=== PATIENT | female | born 1965 | race African-American/Black ===

== ENCOUNTER 2017-02-08 08:13 | Emergency (ER) | payer MEDICAID ==
[~2017-02-08] VITALS: Ht 162.6 cm; Wt 114.0 kg
[2017-02-08] MEDS ORDERED: CLONIDINE 0.1MG TABLET PO ONE (11:00)
[2017-02-08 11:37] VITALS: BP 215/92
== END 2017-02-08 12:06 | disposition home or self-care (01) ==
LOC: ER 08:45
DX: T16.1XXA Foreign body in right ear, initial encounter (principal); I10 Essential (primary) hypertension; X58.XXXA Exposure to other specified factors, initial encounter; Y93.89 Activity, other specified; Y92.89 Other specified places as the place of occurrence of the external cause; Y99.8 Other external cause status
CPT/HCPCS: 69200; 99284

== ENCOUNTER 2017-03-11 09:50 | Emergency (ER) | payer MEDICAID ==
[~2017-03-11] VITALS: Ht 162.6 cm; Wt 115.0 kg
[2017-03-11] MEDS ORDERED: HYDROCHLOROTHIAZIDE 25MG TABLET PO ONE (10:45)
[2017-03-11] MEDS ORDERED: ASPIRIN 81MG TABLET PO ONE (10:45)
[2017-03-11] MEDS ORDERED: NITROGLYCERIN 0.4MG TABLET SL SL ONE (10:45)
[2017-03-11 11:29] LABS: BASOPHILS % 0.5 % (0.0-2.0); EOSINOPHILS % 2.6 % (0.0-5.0); HEMATOCRIT. 35.5 % (36.0-48.0); HEMOGLOBIN. 11.2 g/dL (12.0-16.0); LYMPHOCYTES % 25.7 % (20.0-50.0); MEAN CORPUSCULAR VOLUME 72.5 fL (81.0-99.0); MEAN PLATELET VOLUME 8.7 fl (7.4-10.4); MONOCYTES % 6.5 % (2.0-8.0); NEUTROPHILS % 64.7 % (40.0-76.0); PLATELET 235 x1000/uL (130-400); RED CELL DISTRIBUTION WIDTH 15.5 % (11.6-14.6)
[2017-03-11 11:37] LABS: PARTIAL THROMBOPLASTIN TIME 27.6 sec (24.0-34.0); PROTHROMBIN TIME 10.4 sec
[2017-03-11 11:46] LABS: CARBON DIOXIDE 29 mEq/L (21-32); CHLORIDE 106 mEq/L (98-107); TROPONIN I 0.04 ng/mL (0.00-0.04)
[2017-03-11 15:38] VITALS: BP 176/78
== END 2017-03-11 15:40 | disposition home or self-care (01) ==
LOC: ER 11:05
DX: I10 Essential (primary) hypertension (principal); M54.2 Cervicalgia
CPT/HCPCS: 36415; 71010; 80053; 83690; 83880; 84484; 85025; 85610; 85730; 93005; 99285

== ENCOUNTER 2017-08-19 11:27 | Emergency (ER) | payer MEDICAID ==
[~2017-08-19] VITALS: Ht 157.5 cm; Wt 110.0 kg
[2017-08-19 11:47] VITALS: BP 160/97
== END 2017-08-19 20:00 | disposition left against medical advice (07) ==
LOC: ER 12:02
DX: Z53.21 Procedure and treatment not carried out due to patient leaving prior to being seen by health care provider (principal)

== ENCOUNTER 2019-08-14 09:19 | Emergency (ER) | payer MEDICAID ==
[~2019-08-14] VITALS: Ht 162.6 cm; Wt 111.0 kg
[~2019-08-14 09:19] MED LIST: AMLO2.5T2 PO; ASPI-1393 PO; HYDR25TA PO
[2019-08-14 09:34] VITALS: BP 186/96
[2019-08-14] MEDS ORDERED: KETOROLAC 60MG/2ML VIAL IM STA (10:53)
[2019-08-14 11:39] LABS: CHLORIDE 106 mEq/L (98-107)
== END 2019-08-14 12:40 | disposition home or self-care (01) ==
LOC: ER 09:19
DX: M54.2 Cervicalgia (principal); I10 Essential (primary) hypertension; Z79.899 Other long term (current) drug therapy
CPT/HCPCS: 36415; 80048; 96372; 99283; J1885

== ENCOUNTER 2019-11-23 08:27 | Emergency (ER) | payer MEDICAID ==
[~2019-11-23] VITALS: Ht 167.6 cm; Wt 100.0 kg
[~2019-11-23 08:27] MED LIST changes: -ASPI-1393 PO; +ASPI-1497 PO
[2019-11-23] MEDS ORDERED: ACETAMINOPHEN 325MG TABLET ONE (08:37)
[2019-11-23] MEDS ORDERED: ACETAMINOPHEN 325MG TABLET PO ONE (08:45)
[2019-11-23 09:46] VITALS: BP 145/75
== END 2019-11-23 10:23 | disposition home or self-care (01) ==
LOC: ER 08:27
DX: J06.9 Acute upper respiratory infection, unspecified (principal); I10 Essential (primary) hypertension
CPT/HCPCS: 71045; 87804; 99284

== ENCOUNTER 2019-12-01 07:51 | Inpatient (IN) | payer MEDICAID, OTHER ==
[~2019-12-01] VITALS: Ht 162.6 cm; Wt 111.6 kg
[2019-12-01] MEDS ORDERED: IBUPROFEN 600MG TABLET PO STA (08:09)
[2019-12-01] MEDS ORDERED: ONDANSETRON HCL 4MG/2ML INJ IV ONE (08:45)
[2019-12-01] MEDS ORDERED: MORPHINE SULFATE 4 MG/ML CPJ (NOT FOR IM USE) IV ONE (08:45)
[2019-12-01 09:16] LABS: BG BASE EXCESS 0.7 mmol/L (-2.0-2.0); BG CARBOXYHEMOGLOBIN 0.2 % (0.5-1.5); BG DEOXYHEMOGLOBIN 5.9 % (0.0-5.0); BG FRACTION INSPIRED OXYGEN 44; BG HCO3 ACT 23.9 mmol/L (22.0-26.0); BG METHEMOGLOBIN 0.3 % (0.0-1.5); BG OXYGEN SATURATION 94.1 % (92.0-98.5); BG OXYHEMOGLOBIN 93.6 % (94.0-97.0); BG PCO2 33.3 mmHg (35.0-45.0); BG PH 7.473 (7.350-7.450); BG PO2 71.1 mmHg (75.0-100.0); BG SAMPLE SITE RIGHT RADIAL; BG TOTAL HEMOGLOBIN 12.2 g/dL (12.0-18.0); BG VENT MODE NASAL CANNULA
[2019-12-01 10:15] LABS: CHLORIDE 103 mEq/L (98-107); HEMATOCRIT. 35.6 % (36.0-48.0); HEMOGLOBIN. 11.8 g/dL (12.0-16.0); MEAN CORPUSCULAR VOLUME 72.6 fL (81.0-99.0); MEAN PLATELET VOLUME 8.3 fl (7.4-10.4); PLATELET 357 x1000/uL (130-400); RED CELL DISTRIBUTION WIDTH 14.5 % (11.6-14.6)
[2019-12-01 10:17] LABS: INR 1.1; PROTHROMBIN TIME 11.4 sec (9.6-11.0)
[2019-12-01 10:24] LABS: CREATINE KINASE 405 IU/L (26-192)
[2019-12-01 10:28] LABS: D-DIMER 23.55 mg/L FEU (<0.50)
[2019-12-01 10:34] LABS: PLATELET ESTIMATE NORMAL
[2019-12-01] MEDS ORDERED: ENOXAPARIN 100MG/ML SYR SUBCUT ONE (10:45)
[2019-12-01] MEDS ORDERED: METOCLOPRAMIDE HCL 10MG/2ML VIAL IV PRN (12:00)
[2019-12-01] MEDS ORDERED: CLONIDINE 0.1MG TABLET PO PRN (12:00)
[2019-12-01] MEDS ORDERED: LORAZEPAM 2MG/ML CPJ IM ONE (12:45)
[2019-12-01 15:00] VITALS: BP 132/78
[2019-12-01] MEDS: ACETAMINOPHEN 325MG TABLET PO PRN (15:48)
[2019-12-01 16:00] VITALS: BP 132/78
[2019-12-01] MEDS ORDERED: AZITHROMYCIN 500 MG TABLET PO NR (17:00)
[2019-12-01] MEDS: CEFTRIAXONE 1,000 MG in DEXTROSE 5% WATER 50 ML IV SCH (17:48)
[2019-12-01 20:00] VITALS: BP 104/62
[2019-12-01] MEDS: AMLODIPINE 5MG TABLET PO SCH (21:00)
[2019-12-01] MEDS: GUAIFENESIN 600MG ER TABLET PO SCH (21:06)
[2019-12-01] MEDS: ENOXAPARIN 120MG/0.8ML SYR SUBCUT SCH (21:06)
[2019-12-01] MEDS: ASCORBIC ACID 500 MG TABLET PO SCH (21:07)
[2019-12-01 23:59] VITALS: BP 98/65
[2019-12-02 00:50] LABS: CLARITY URINE CLEAR (CLEAR); COLOR URINE YELLOW (YELLOW); KETONES URINE NEGATIVE (NEGATIVE); LEUKOCYTE ESTERASE URINE NEGATIVE (NEGATIVE); NITRITE URINE NEGATIVE (NEGATIVE); OCCULT BLOOD URINE NEGATIVE (NEGATIVE); PROTEIN URINE TRACE (NEGATIVE); SPECIFIC GRAVITY URINE 1.011 (1.005-1.030)
[2019-12-02 04:00] VITALS: BP 119/59
[2019-12-02 08:00] VITALS: BP 123/86
[2019-12-02] MEDS: ENOXAPARIN 120MG/0.8ML SYR SUBCUT SCH ×2 (08:05→20:42)
[2019-12-02] MEDS: CEFTRIAXONE 1,000 MG in DEXTROSE 5% WATER 50 ML IV SCH (08:05)
[2019-12-02] MEDS: ASCORBIC ACID 500 MG TABLET PO SCH ×2 (08:06→20:41)
[2019-12-02] MEDS: ZINC SULFATE 220 MG ( 50 ) CAPSULE PO SCH (08:06)
[2019-12-02] MEDS: AZITHROMYCIN 250 MG TABLET PO SCH (08:06)
[2019-12-02] MEDS: GUAIFENESIN 600MG ER TABLET PO SCH ×3 (08:06→20:50)
[2019-12-02] MEDS: AMLODIPINE 5MG TABLET PO SCH ×2 (08:07→20:41)
[2019-12-02] MEDS: THIAMINE HCL 100MG TABLET PO SCH ×2 (08:07→16:07)
[2019-12-02 12:00] VITALS: BP 105/52
[2019-12-02 16:00] VITALS: BP 133/74
[2019-12-02] MEDS: ALBUTEROL 6.7GM HFA INHALER ORI SCH (18:00)
[2019-12-02] MEDS: PROMETHAZINE/DEXTROMETHORPHAN 6.25-15MG/5ML BOTTLE 120ML PO PRN (18:03)
[2019-12-02 20:00] VITALS: BP 111/72
[2019-12-03] VITALS: BP 112/71
[2019-12-03] MEDS: PROMETHAZINE/DEXTROMETHORPHAN 6.25-15MG/5ML BOTTLE 120ML PO PRN ×3 (00:15→18:55)
[2019-12-03 04:00] VITALS: BP 117/70
[2019-12-03 08:00] VITALS: BP 120/81
[2019-12-03] MEDS: GUAIFENESIN 600MG ER TABLET PO SCH ×3 (09:00→22:35)
[2019-12-03] MEDS: ASCORBIC ACID 500 MG TABLET PO SCH ×2 (09:07→22:36)
[2019-12-03] MEDS: ZINC SULFATE 220 MG ( 50 ) CAPSULE PO SCH (09:08)
[2019-12-03] MEDS: AZITHROMYCIN 250 MG TABLET PO SCH (09:08)
[2019-12-03] MEDS: ENOXAPARIN 120MG/0.8ML SYR SUBCUT SCH ×2 (09:08→22:36)
[2019-12-03] MEDS: AMLODIPINE 5MG TABLET PO SCH ×2 (09:08→22:36)
[2019-12-03] MEDS: THIAMINE HCL 100MG TABLET PO SCH ×2 (09:11→17:14)
[2019-12-03 12:00] VITALS: BP 115/78
[2019-12-03] MEDS: METHYLPREDNISOLONE SOD SUCC 40 MG/ML VIAL IV SCH ×2 (12:43→17:14)
[2019-12-03] MEDS: CEFTRIAXONE 1 G PREMIX 50 ML IV SCH (14:22)
[2019-12-03 16:00] VITALS: BP 122/74
[2019-12-03 20:00] VITALS: BP 122/87
[2019-12-04] VITALS: BP 114/70
[2019-12-04] MEDS: PROMETHAZINE/DEXTROMETHORPHAN 6.25-15MG/5ML BOTTLE 120ML PO PRN (01:19)
[2019-12-04 04:00] VITALS: BP 123/86
[2019-12-04] MEDS: ACETAMINOPHEN 325MG TABLET PO PRN ×2 (05:22→13:39)
[2019-12-04 05:50] LABS: HEMATOCRIT. 33.6 % (36.0-48.0); HEMOGLOBIN. 10.8 g/dL (12.0-16.0); MEAN CORPUSCULAR HEMOGLOBIN 23.9 pg (28.0-32.0); MEAN CORPUSCULAR VOLUME 74.1 fL (81.0-99.0); MEAN PLATELET VOLUME 8.4 fl (7.4-10.4); PLATELET 509 x1000/uL (130-400); RED BLOOD CELL COUNT 4.53 mill/uL (4.2-5.4); RED CELL DISTRIBUTION WIDTH 14.8 % (11.6-14.6)
[2019-12-04 05:59] LABS: CHLORIDE 107 mEq/L (98-107)
[2019-12-04 08:00] VITALS: BP 120/81
[2019-12-04 09:04] LABS: PLATELET ESTIMATE INCREASED
[2019-12-04] MEDS: AMLODIPINE 5MG TABLET PO SCH ×2 (09:51→21:12)
[2019-12-04] MEDS: ASCORBIC ACID 500 MG TABLET PO SCH ×2 (09:51→21:12)
[2019-12-04] MEDS: GUAIFENESIN 600MG ER TABLET PO SCH ×2 (09:51→21:00)
[2019-12-04] MEDS: THIAMINE HCL 100MG TABLET PO SCH ×2 (09:52→17:57)
[2019-12-04] MEDS: AZITHROMYCIN 250 MG TABLET PO SCH (09:52)
[2019-12-04] MEDS: ZINC SULFATE 220 MG ( 50 ) CAPSULE PO SCH (09:52)
[2019-12-04] MEDS: METHYLPREDNISOLONE SOD SUCC 40 MG/ML VIAL IV SCH ×2 (09:54→17:57)
[2019-12-04] MEDS: ENOXAPARIN 120MG/0.8ML SYR SUBCUT SCH ×2 (09:57→21:12)
[2019-12-04] MEDS: CEFTRIAXONE 1 G PREMIX 50 ML IV SCH (13:39)
[2019-12-04] MEDS ORDERED: FUROSEMIDE 20MG/2ML VIAL IVP SCH (14:30)
[2019-12-04 16:00] VITALS: BP_SYST 126; BP_SYST 128; BP_DIAS 77
[2019-12-04 20:00] VITALS: BP 122/68
[2019-12-04 21:04] VITALS: BP 136/73
[2019-12-05] VITALS: BP 118/72
[2019-12-05 04:00] VITALS: BP 128/68
[2019-12-05] MEDS: PROMETHAZINE/DEXTROMETHORPHAN 6.25-15MG/5ML BOTTLE 120ML PO PRN ×2 (05:08→17:07)
[2019-12-05 07:58] VITALS: BP 110/71
[2019-12-05] MEDS: GUAIFENESIN 600MG ER TABLET PO SCH ×2 (09:00→21:02)
[2019-12-05] MEDS: AMLODIPINE 5MG TABLET PO SCH ×2 (09:00→21:00)
[2019-12-05] MEDS: METHYLPREDNISOLONE SOD SUCC 40 MG/ML VIAL IV SCH ×2 (10:04→16:56)
[2019-12-05] MEDS: ASCORBIC ACID 500 MG TABLET PO SCH ×2 (10:04→21:02)
[2019-12-05] MEDS: THIAMINE HCL 100MG TABLET PO SCH ×2 (10:04→16:48)
[2019-12-05] MEDS: ZINC SULFATE 220 MG ( 50 ) CAPSULE PO SCH (10:04)
[2019-12-05] MEDS: AZITHROMYCIN 250 MG TABLET PO SCH (10:05)
[2019-12-05] MEDS: ENOXAPARIN 120MG/0.8ML SYR SUBCUT SCH ×2 (10:38→21:02)
[2019-12-05 12:06] VITALS: BP 121/69
[2019-12-05] MEDS: CEFTRIAXONE 1 G PREMIX 50 ML IV SCH (12:19)
[2019-12-05 16:20] VITALS: BP 119/72
[2019-12-05 20:00] VITALS: BP 109/76
[2019-12-06] VITALS: BP 133/79
[2019-12-06 04:00] VITALS: BP 157/78
[2019-12-06 07:36] VITALS: BP 148/72
[2019-12-06] MEDS: GUAIFENESIN 600MG ER TABLET PO SCH ×2 (09:00→20:56)
[2019-12-06] MEDS: THIAMINE HCL 100MG TABLET PO SCH ×2 (09:18→16:04)
[2019-12-06] MEDS: ASCORBIC ACID 500 MG TABLET PO SCH ×2 (09:18→20:56)
[2019-12-06] MEDS: ZINC SULFATE 220 MG ( 50 ) CAPSULE PO SCH (09:18)
[2019-12-06] MEDS: AMLODIPINE 5MG TABLET PO SCH ×2 (09:18→21:00)
[2019-12-06] MEDS: METHYLPREDNISOLONE SOD SUCC 40 MG/ML VIAL IV SCH ×2 (09:21→16:04)
[2019-12-06] MEDS: ENOXAPARIN 120MG/0.8ML SYR SUBCUT SCH ×2 (09:23→20:56)
[2019-12-06 11:44] VITALS: BP 126/68
[2019-12-06 15:41] VITALS: BP 129/74
[2019-12-06 20:00] VITALS: BP 127/71
[2019-12-07] VITALS: BP 150/78
[2019-12-07 04:00] VITALS: BP 143/79
[2019-12-07 08:00] VITALS: BP 165/86
[2019-12-07] MEDS: ENOXAPARIN 120MG/0.8ML SYR SUBCUT SCH ×2 (08:19→22:49)
[2019-12-07] MEDS: THIAMINE HCL 100MG TABLET PO SCH ×2 (08:19→16:33)
[2019-12-07] MEDS: METHYLPREDNISOLONE SOD SUCC 40 MG/ML VIAL IV SCH ×2 (08:19→16:33)
[2019-12-07] MEDS: GUAIFENESIN 600MG ER TABLET PO SCH ×2 (08:20→22:49)
[2019-12-07] MEDS: ASCORBIC ACID 500 MG TABLET PO SCH ×2 (08:20→22:50)
[2019-12-07] MEDS: AMLODIPINE 5MG TABLET PO SCH ×2 (08:20→22:50)
[2019-12-07] MEDS: ZINC SULFATE 220 MG ( 50 ) CAPSULE PO SCH (08:20)
[2019-12-07 12:00] VITALS: BP 134/84
[2019-12-07 16:00] VITALS: BP 161/98
[2019-12-07] MEDS: ALBUTEROL 6.7GM HFA INHALER ORI SCH ×2 (18:00→21:55)
[2019-12-07 19:14] LABS: HEMATOCRIT. 36.8 % (36.0-48.0); HEMOGLOBIN. 11.4 g/dL (12.0-16.0); MEAN CORPUSCULAR HEMOGLOBIN 22.9 pg (28.0-32.0); MEAN PLATELET VOLUME 8.5 fl (7.4-10.4); PLATELET 627 x1000/uL (130-400); RED BLOOD CELL COUNT 4.97 mill/uL (4.2-5.4); RED CELL DISTRIBUTION WIDTH 14.8 % (11.6-14.6)
[2019-12-07 19:18] LABS: CHLORIDE 105 mEq/L (98-107)
[2019-12-07 19:35] LABS: PLATELET ESTIMATE INCREASED
[2019-12-07 20:00] VITALS: BP 156/66
[2019-12-08] VITALS: BP 148/79
[2019-12-08] MEDS: ALBUTEROL 6.7GM HFA INHALER ORI SCH ×3 (03:30→16:10)
[2019-12-08 04:00] VITALS: BP 137/80
[2019-12-08 08:00] VITALS: BP 147/84
[2019-12-08] MEDS: THIAMINE HCL 100MG TABLET PO SCH ×2 (09:14→17:58)
[2019-12-08] MEDS: ZINC SULFATE 220 MG ( 50 ) CAPSULE PO SCH (09:14)
[2019-12-08] MEDS: ASCORBIC ACID 500 MG TABLET PO SCH ×2 (09:14→21:05)
[2019-12-08] MEDS: GUAIFENESIN 600MG ER TABLET PO SCH ×2 (09:14→21:05)
[2019-12-08] MEDS: AMLODIPINE 5MG TABLET PO SCH ×2 (09:15→21:05)
[2019-12-08] MEDS: ENOXAPARIN 120MG/0.8ML SYR SUBCUT SCH ×2 (09:18→21:06)
[2019-12-08] MEDS: METHYLPREDNISOLONE SOD SUCC 40 MG/ML VIAL IV SCH (10:07)
[2019-12-08 12:00] VITALS: BP 128/71
[2019-12-08 16:00] VITALS: BP 156/92
[2019-12-08 20:00] VITALS: BP 120/75
[2019-12-09] VITALS: BP 130/78
[2019-12-09 04:00] VITALS: BP 137/72
[2019-12-09 08:00] VITALS: BP 138/78
[2019-12-09] MEDS: ENOXAPARIN 120MG/0.8ML SYR SUBCUT SCH ×2 (08:56→21:56)
[2019-12-09] MEDS: PREDNISONE 20MG TABLET PO SCH (08:56)
[2019-12-09] MEDS: AMLODIPINE 5MG TABLET PO SCH ×2 (08:57→21:57)
[2019-12-09] MEDS: ZINC SULFATE 220 MG ( 50 ) CAPSULE PO SCH (08:57)
[2019-12-09] MEDS: GUAIFENESIN 600MG ER TABLET PO SCH ×2 (08:57→21:57)
[2019-12-09] MEDS: ASCORBIC ACID 500 MG TABLET PO SCH ×2 (08:57→21:57)
[2019-12-09] MEDS: THIAMINE HCL 100MG TABLET PO SCH ×2 (08:59→18:25)
[2019-12-09 12:00] VITALS: BP 143/72
[2019-12-09] MEDS ORDERED: ALBU18HF2 IH (13:29)
[2019-12-09] MEDS ORDERED: ZINC220C2 PO (13:29)
[2019-12-09] MEDS ORDERED: ASCO500T20 PO (13:29)
[2019-12-09] MEDS ORDERED: P20 MT (13:29)
[2019-12-09 16:00] VITALS: BP 136/74
[2019-12-09 18:36] LABS: BG BASE EXCESS 0.7 mmol/L (-2.0-2.0); BG CARBOXYHEMOGLOBIN 0.3 % (0.5-1.5); BG DEOXYHEMOGLOBIN 7.9 % (0.0-5.0); BG FRACTION INSPIRED OXYGEN 21; BG HCO3 ACT 25.2 mmol/L (22.0-26.0); BG METHEMOGLOBIN 0.2 % (0.0-1.5); BG OXYGEN SATURATION 92.1 % (92.0-98.5); BG OXYHEMOGLOBIN 91.6 % (94.0-97.0); BG PH 7.418 (7.350-7.450); BG PO2 64.8 mmHg (75.0-100.0); BG SAMPLE SITE LEFT RADIAL; BG TOTAL HEMOGLOBIN 11.8 g/dL (12.0-18.0); BG VENT MODE ROOM AIR
[2019-12-09 20:00] VITALS: BP 132/80
[2019-12-10] VITALS: BP 133/77
[2019-12-10 04:00] VITALS: BP 140/82
[2019-12-10 08:00] VITALS: BP 123/67
[2019-12-10] MEDS: ENOXAPARIN 120MG/0.8ML SYR SUBCUT SCH (08:26)
[2019-12-10] MEDS: ASCORBIC ACID 500 MG TABLET PO SCH (08:26)
[2019-12-10] MEDS: GUAIFENESIN 600MG ER TABLET PO SCH (08:27)
[2019-12-10] MEDS: AMLODIPINE 5MG TABLET PO SCH (08:27)
[2019-12-10] MEDS: ZINC SULFATE 220 MG ( 50 ) CAPSULE PO SCH (08:27)
[2019-12-10] MEDS: PREDNISONE 20MG TABLET PO SCH (08:27)
[2019-12-10] MEDS: THIAMINE HCL 100MG TABLET PO SCH (08:27)
[2019-12-10 10:22] VITALS: BP 123/78
== END 2019-12-10 11:10 | disposition home or self-care (01) | DRG 720 ==
LOC: ER 07:51 → 7WST 10:50 → ENRESERV 11:02 → EDBEDREQ 11:10 → 7WST 12-02 10:37
PROVIDERS: ADMIT Internal Medicine; ATTEND Internal Medicine
PROC: 8E0ZXY6 Isolation (ICD-10-PCS; principal; 2019-12-01)
DX: A41.89 Other specified sepsis (principal); U07.1 COVID-19; J96.01 Acute respiratory failure with hypoxia; E43 Unspecified severe protein-calorie malnutrition; J12.89 Other viral pneumonia; E66.9 Obesity, unspecified; I10 Essential (primary) hypertension; M94.0 Chondrocostal junction syndrome [Tietze]; B97.89 Other viral agents as the cause of diseases classified elsewhere; D72.810 Lymphocytopenia; Z56.0 Unemployment, unspecified; Z59.0 Homelessness; Z82.49 Family history of ischemic heart disease and other diseases of the circulatory system; Z68.41 Body mass index [BMI] 40.0-44.9, adult; Z79.82 Long term (current) use of aspirin; Z79.899 Other long term (current) drug therapy
CPT/HCPCS: 36415; 36600; 71045; 80048; 80053; 81003; 82375; 82550; 82728; 82805; 83605; 83615; 83880; 84145; 84484; 85025; 85379; 85384; 86140; 87635; 93005; 99285; J0696; J1650; J1940; J2920; J7060; J7512

== ENCOUNTER 2022-10-20 13:11 | Emergency (ER) | payer MEDICAID ==
[~2022-10-20] VITALS: Ht 162.6 cm; Wt 108.3 kg
[~2022-10-20 13:11] MED LIST changes: +ALBU18HF2 IH; +ASCO500T20 PO; +P20 MT; +ZINC220C2 PO
[2022-10-20 17:41] LABS: BASOPHILS % 0.7 % (0.0-2.0); EOSINOPHILS % 1.6 % (0.0-5.0); HEMOGLOBIN. 12.1 g/dL (12.0-16.0); LYMPHOCYTES % 44.2 % (20.0-50.0); MEAN CORPUSCULAR HEMOGLOBIN 22.8 pg (28.0-32.0); MEAN CORPUSCULAR VOLUME 73.4 fL (81.0-99.0); MEAN PLATELET VOLUME 8.7 fl (7.4-10.4); MONOCYTES % 4.8 % (2.0-8.0); NEUTROPHILS % 48.7 % (40.0-76.0); PLATELET 262 x1000/uL (130-400); RED BLOOD CELL COUNT 5.31 mill/uL (4.2-5.4); RED CELL DISTRIBUTION WIDTH 15.7 % (11.6-14.6)
[2022-10-20 17:46] LABS: CHLORIDE 104 mEq/L (98-107)
[2022-10-20] MEDS ORDERED: ASPIRIN 325MG EC TABLET PO ONE (19:00)
[2022-10-20 20:07] VITALS: BP 122/80
== END 2022-10-20 23:44 | disposition left against medical advice (07) ==
LOC: ER 15:12 → CANBEDREQ 10-21 11:07
DX: R27.0 Ataxia, unspecified (principal); R05.9 Cough, unspecified; R94.39 Abnormal result of other cardiovascular function study; I10 Essential (primary) hypertension; Z20.822 Contact with and (suspected) exposure to COVID-19; Z79.82 Long term (current) use of aspirin
CPT/HCPCS: 36415; 70450; 71045; 80053; 83880; 84484; 85025; 87426; 93005; 99285; C9803; Z7610

== ENCOUNTER 2024-03-28 10:12 | Emergency (ER) | payer MEDICAID ==
[~2024-03-28] VITALS: Ht 162.6 cm; Wt 112.0 kg
[2024-03-28] MEDS ORDERED: PRED10TA MT (10:41)
[2024-03-28] MEDS ORDERED: KETO10TA2 MT (10:42)
[2024-03-28] MEDS ORDERED: DIAZ2TAB MT (10:42)
[2024-03-28] MEDS ORDERED: LIDO700A15 TP (10:44)
[2024-03-28 10:45] VITALS: O2SAT 99
[2024-03-28 10:59] VITALS: BP 169/90; PULSE 74; TEMP 36.72516; O2SAT 100
[2024-03-28 11:00] VITALS: RESP 16
[2024-03-28] MEDS: KETOROLAC 30MG/ML VIAL IM STA (11:00)
== END 2024-03-28 11:25 | disposition home or self-care (01) ==
LOC: ER 10:24
DX: M54.50 Low back pain, unspecified (principal); M54.10 Radiculopathy, site unspecified; I10 Essential (primary) hypertension; Z79.899 Other long term (current) drug therapy
CPT/HCPCS: 99283; 96372; J1885